=== PATIENT | female | born 1990 | race Caucasian/White ===

== ENCOUNTER 2017-12-04 05:54 | Inpatient (IN) ==
[2017-12-04] MEDS ORDERED: BUTORPHANOL 2 MG/ML VIAL IV PRN (06:06)
[2017-12-04] MEDS ORDERED: LACTATED RINGERS 250 ML IV ONE (06:06)
[2017-12-04] MEDS ORDERED: ONDANSETRON 4 MG/2 ML VIAL IV PRN (06:06)
[2017-12-04] MEDS ORDERED: MEPERIDINE 50 MG/1 ML VIAL IV PRN (06:06)
[2017-12-04] MEDS ORDERED: OXYTOCIN/LR 20 UNIT/1,000 ML BAG IV SCH (06:30)
[2017-12-04] MEDS ORDERED: LACTATED RINGERS 1,000 ML IV SCH (06:30)
[2017-12-04 07:06] LABS: Basophils % 0.4 % (0.0-0.8); Eosinophils # 0.1 10*3/uL (0.0-0.87); Eosinophils % 0.6 % (0.00-10.9); Hematocrit 29.8 VOL% (35.7-47.0); Immature Granulocytes % 0.4 %; Immature Granulocytes Absolute 0.03 #; Lymphocytes # 2.8 10*3/uL (1.4-4.0); Lymphocytes % 34.9 % (21.3-54.2); Mean Corpuscular HGB Conc 33.6 GM/DL (32-36); Mean Corpuscular Hemoglobin 29 PG (27-34); Mean Corpuscular Volume 85.4 FL (87-102); Mean Platelet Volume 11.6 FL (9.6-12.0); Monocytes # 0.5 10*3/uL (0.11-0.8); Monocytes % 5.8 % (1.7-12.7); Neutrophils # 4.6 10*3/uL (1.4-7.4); Neutrophils % 57.9 % (38.7-73.9); Platelet Count 180 T/CUMM (130-400); Red Blood Count 3.49 MC/CUMM (3.8-5.5); Red Cell Distribution Width 14.1 % (9.3-17.3); White Blood Count 7.9 T/CUMM (4-12)
[2017-12-04] MEDS ORDERED: ePHEDrine 50 MG/ML AMP IV PRN ×2 (08:59)
[2017-12-04] MEDS ORDERED: CITRIC ACID/SODIUM CITRATE 30 ML UDCUP PO ONE (08:59)
[2017-12-04] MEDS ORDERED: LACTATED RINGERS 1,000 ML IV ONE (08:59)
[2017-12-04] MEDS ORDERED: diphenhydrAMINE 50 MG/1 ML VIAL IV PRN ×2 (08:59)
[2017-12-04] MEDS ORDERED: FAMOTIDINE 20 MG/2 ML VIAL IV ONE (08:59)
[2017-12-04] MEDS ORDERED: PROMETHAZINE 25 MG/1 ML VIAL IM ONE (08:59)
[2017-12-04] MEDS ORDERED: hydrOXYzine HCL 25 MG/1 ML VIAL IM PRN (08:59)
[2017-12-04] MEDS ORDERED: fentaNYL 2 MCG/ROPIV 0.2% EPID 150 ML EPIDURAL SCH (09:00)
[2017-12-04 11:53] LABS: Apearance,Urine CLEAR (Clear); Bilirubin,Urine Negative (Negative); Blood, Urine Negative (Negative); Glucose,Urine (UA) Negative (Negative); Ketones,Urine 20 mg/dL (Negative); Mucus,Urine Occasional /LPF (Occasional); Nitrite,Urine Negative (Negative); Protein,Urine Negative; RBC,Urine <1 /HPF (0-4); Urine Color Yellow (Yellow); Urine Specific Gravity 1.014 (1.001-1.035); Urine Urobilinogen < 2.0 EU/DL (0.2-1.0)
[2017-12-04] MEDS ORDERED: METHYLERGONOVINE 0.2 MG/1 ML AMP ONE (12:39)
[2017-12-04] MEDS ORDERED: miSOPROStol 200 MCG TABLET ONE (12:39)
[2017-12-04 13:18] LABS: Cord Venous Blood HCO3 23.9 MMOL/L; Cord Venous Blood PCO2 29.5 MMHG; Cord Venous Blood PO2 24.6
[2017-12-04] MEDS ORDERED: HYDROCORTISONE 2.5% RECTAL CREAM 30 GM TUBE TOP PRN (16:05)
[2017-12-04] MEDS ORDERED: ACETAMINOPHEN/CODEINE 300-30 MG TABLET PO PRN (16:05)
[2017-12-04] MEDS ORDERED: BISACODYL 10 MG SUPP RECTAL PRN (16:05)
[2017-12-04] MEDS ORDERED: WITCH HAZEL PADS 100/JAR TOP PRN (16:05)
[2017-12-04] MEDS ORDERED: BENZOCAINE 20%/MENTHOL 0.5% SPRAY 56 GM CAN TOP PRN (16:05)
[2017-12-04] MEDS ORDERED: IBUPROFEN 800 MG TABLET PO PRN (16:05)
[2017-12-04] MEDS ORDERED: DIPH/TET/ACEL PERT BOOSTER VACCINE 0.5 ML VIAL IM ONE (16:05)
[2017-12-04] MEDS ORDERED: RHO(D) IMMUNE GLOBULIN 300 MCG SYRINGE IM ONE (16:05)
[2017-12-04] MEDS ORDERED: ACETAMINOPHEN 325 MG TABLET PO PRN (16:05)
[2017-12-04] MEDS ORDERED: MEASLES/MUMPS/RUBELLA VACCINE 0.5 ML VIAL SUBCUT ONE (16:05)
[2017-12-04] MEDS ORDERED: LANOLIN 50% CREAM 0.3 OZ TUBE TOP PRN (16:05)
[2017-12-04] MEDS ORDERED: oxyCODONE/ACETAMINOPHEN 5-325 MG TABLET PO PRN ×2 (16:05)
[2017-12-04] MEDS ORDERED: OXYTOCIN/LR 20 UNIT/1,000 ML BAG IV ONE (17:24)
[2017-12-04] MEDS: DOCUSATE SODIUM 100 MG CAPSULE PO SCH (22:01)
[2017-12-05 06:52] LABS: Basophils % 0.2 % (0.0-0.8); Eosinophils # 0.1 10*3/uL (0.0-0.87); Eosinophils % 0.7 % (0.00-10.9); Hematocrit 29.1 VOL% (35.7-47.0); Hemoglobin 9.8 GM/DL (12.0-16.0); Immature Granulocytes % 0.4 %; Immature Granulocytes Absolute 0.04 #; Lymphocytes # 2.9 10*3/uL (1.4-4.0); Lymphocytes % 26.7 % (21.3-54.2); Mean Corpuscular HGB Conc 33.7 GM/DL (32-36); Mean Corpuscular Hemoglobin 28 PG (27-34); Mean Corpuscular Volume 83.4 FL (87-102); Mean Platelet Volume 12.2 FL (9.6-12.0); Monocytes # 0.6 10*3/uL (0.11-0.8); Monocytes % 5.6 % (1.7-12.7); Neutrophils # 7.2 10*3/uL (1.4-7.4); Neutrophils % 66.4 % (38.7-73.9); Platelet Count 184 T/CUMM (130-400); Red Blood Count 3.49 MC/CUMM (3.8-5.5); Red Cell Distribution Width 14.3 % (9.3-17.3); White Blood Count 10.8 T/CUMM (4-12)
[2017-12-05] MEDS: DOCUSATE SODIUM 100 MG CAPSULE PO SCH ×2 (09:08→20:25)
[2017-12-06] MEDS: DOCUSATE SODIUM 100 MG CAPSULE PO SCH (08:25)
[2017-12-06 08:57] VITALS: BP 129/82
== END 2017-12-06 15:30 | disposition home or self-care (01) | DRG 560 ==
LOC: N.LDOUT 05:54 → N.LD 05:56 → N.OB 16:05
PROVIDERS: ADMIT Obstetrics & Gynecology; ATTEND Obstetrics & Gynecology

== ENCOUNTER 2019-07-01 05:47 | Inpatient (IN) ==
[2019-07-01] MEDS: LACTATED RINGERS 1,000 ML IV SCH ×2 (06:20→08:52)
[2019-07-01] MEDS ORDERED: ONDANSETRON 4 MG/2 ML VIAL IV PRN (06:28)
[2019-07-01] MEDS ORDERED: MEPERIDINE 50 MG/1 ML VIAL IV PRN (06:28)
[2019-07-01] MEDS ORDERED: LACTATED RINGERS 500 ML IV PRN (06:28)
[2019-07-01] MEDS ORDERED: OXYTOCIN/LR 20 UNIT/1,000 ML BAG IV SCH (06:30)
[2019-07-01] MEDS ORDERED: INFLUENZA VIRUS VACCINE 0.5 ML SYRINGE IM ONE (06:46)
[2019-07-01] MEDS ORDERED: CLINDAMYCIN INJ 900 MG in PREMIX 1 EACH IV SCH (07:00)
[2019-07-01 07:03] LABS: Basophils % 0.3 % (0.0-0.8); Eosinophils # 0.1 10*3/uL (0.0-0.87); Hematocrit 29.7 VOL% (35.7-47.0); Hemoglobin 9.3 GM/DL (12.0-16.0); Immature Granulocytes % 0.3 %; Immature Granulocytes Absolute 0.02 #; Lymphocytes # 2.4 10*3/uL (1.4-4.0); Mean Corpuscular HGB Conc 31.3 GM/DL (32-36); Mean Corpuscular Volume 86.6 FL (87-102); Mean Platelet Volume 10.4 FL (9.6-12.0); Monocytes % 6.5 % (1.7-12.7); Neutrophils % 61.9 % (38.7-73.9); Platelet Count 240 T/CUMM (130-400); Red Blood Count 3.43 MC/CUMM (3.8-5.5); Red Cell Distribution Width 12.9 % (9.3-17.3); White Blood Count 7.9 T/CUMM (4-12)
[2019-07-01 07:23] LABS: Alanine Aminotransferase 12 U/L (13-56); Albumin 2.5 G/DL (3.4-5.0); Alkaline Phosphatase 135 U/L (45-117); Aspartate Amino Transferase 15 U/L (0-37); Bilirubin,Total < 0.39 MG/DL (0.2-1.0); Blood Urea Nitrogen 8 MG/DL (7-18); Calcium 8.8 MG/DL (8.5-10.1); Estimated Glom Filtration Rate 110 ML/MIN; Glucose 85 MG/DL (74-106); Osmolality,Calculated 264.2 MOS/KG (273-304); Total Protein 6.6 G/DL (6.4-8.3)
[2019-07-01] MEDS ORDERED: CITRIC ACID/SODIUM CITRATE 30 ML UDCUP PO ONE (08:02)
[2019-07-01] MEDS ORDERED: hydrOXYzine HCL 25 MG/1 ML VIAL IM PRN (08:02)
[2019-07-01] MEDS ORDERED: ePHEDrine 50 MG/ML AMP IV PRN (08:02)
[2019-07-01] MEDS ORDERED: PROMETHAZINE 25 MG/1 ML VIAL IM ONE (08:02)
[2019-07-01] MEDS ORDERED: FAMOTIDINE 20 MG/2 ML VIAL IV ONE (08:02)
[2019-07-01] MEDS ORDERED: diphenhydrAMINE 50 MG/1 ML VIAL IV PRN ×2 (08:02)
[2019-07-01] MEDS ORDERED: NALOXONE 0.4 MG/ML VIAL IV PRN (08:02)
[2019-07-01] MEDS ORDERED: LACTATED RINGERS 1,000 ML IV ONE (08:02)
[2019-07-01] MEDS ORDERED: fentaNYL 2 MCG/ROPIV 0.2% EPID 100 ML EPIDURAL SCH (08:30)
[2019-07-01] MEDS ORDERED: miSOPROStoL 200 MCG TABLET ONE (10:00)
[2019-07-01] MEDS ORDERED: LIDOCAINE 1% 50 ML VIAL ONE (10:00)
[2019-07-01 10:44] LABS: Cord Arterial Blood HCO3 20.8 MMOL/L
[2019-07-01 10:46] LABS: Cord Venous Blood HCO3 22.9 MMOL/L; Cord Venous Blood PCO2 35.4 MMHG; Cord Venous Blood PO2 26.3 MMHG
[2019-07-01] MEDS ORDERED: ACETAMINOPHEN 325 MG TABLET PO PRN (13:26)
[2019-07-01] MEDS ORDERED: BENZOCAINE 20%/MENTHOL 0.5% SPRAY 56 GM CAN TOP PRN (13:26)
[2019-07-01] MEDS ORDERED: RHO(D) IMMUNE GLOBULIN 300 MCG SYRINGE IM ONE (13:26)
[2019-07-01] MEDS ORDERED: BISACODYL 10 MG SUPP RECTAL PRN (13:26)
[2019-07-01] MEDS ORDERED: LANOLIN 50% CREAM 0.3 OZ TUBE TOP PRN (13:26)
[2019-07-01] MEDS ORDERED: HYDROCORTISONE 2.5% RECTAL CREAM 30 GM TUBE TOP PRN (13:26)
[2019-07-01] MEDS ORDERED: WITCH HAZEL PADS 100/JAR TOP PRN (13:26)
[2019-07-01] MEDS ORDERED: OXYTOCIN/LR 20 UNIT/1,000 ML BAG IV ONE (13:26)
[2019-07-01] MEDS ORDERED: MEASLES/MUMPS/RUBELLA VACCINE 0.5 ML VIAL SUBCUT ONE (13:26)
[2019-07-01] MEDS ORDERED: IBUPROFEN 800 MG TABLET PO PRN (13:26)
[2019-07-01] MEDS ORDERED: oxyCODONE/ACETAMINOPHEN 5-325 MG TABLET PO PRN ×2 (13:26)
[2019-07-01] MEDS ORDERED: DIPH/TET/ACEL PERT BOOSTER VACCINE 0.5 ML VIAL IM ONE (13:26)
[2019-07-01] MEDS: DOCUSATE SODIUM 100 MG CAPSULE PO SCH (20:29)
[2019-07-02 05:47] LABS: Basophils % 0.3 % (0.0-0.8); Eosinophils # 0.2 10*3/uL (0.0-0.87); Eosinophils % 1.6 % (0.00-10.9); Hematocrit 25.7 VOL% (35.7-47.0); Hemoglobin 8.1 GM/DL (12.0-16.0); Immature Granulocytes % 0.4 %; Immature Granulocytes Absolute 0.04 #; Lymphocytes # 3.1 10*3/uL (1.4-4.0); Lymphocytes % 32.3 % (21.3-54.2); Mean Corpuscular HGB Conc 31.5 GM/DL (32-36); Mean Corpuscular Volume 84.5 FL (87-102); Mean Platelet Volume 11.2 FL (9.6-12.0); Monocytes % 6.3 % (1.7-12.7); Neutrophils % 59.1 % (38.7-73.9); Platelet Count 197 T/CUMM (130-400); Red Blood Count 3.04 MC/CUMM (3.8-5.5); White Blood Count 9.6 T/CUMM (4-12)
[2019-07-02] MEDS: FERROUS SULFATE 325 MG TABLET PO SCH ×2 (08:36→21:32)
[2019-07-02] MEDS: DOCUSATE SODIUM 100 MG CAPSULE PO SCH ×2 (08:36→21:32)
[2019-07-03 07:23] VITALS: BP 130/78
[2019-07-03] MEDS: DOCUSATE SODIUM 100 MG CAPSULE PO SCH (08:49)
[2019-07-03] MEDS: FERROUS SULFATE 325 MG TABLET PO SCH (08:49)
[2019-07-03] MEDS ORDERED: INFLUENZA VIRUS VACCINE 0.5 ML SYRINGE IM ONE (09:42)
== END 2019-07-03 11:55 | disposition home or self-care (01) | DRG 560 ==
LOC: N.LDOUT 05:47 → N.LD 05:52 → N.OB 13:12
PROVIDERS: ADMIT Obstetrics & Gynecology; ATTEND Obstetrics & Gynecology